=== PATIENT | female | born 1935 | race Caucasian/White ===

== ENCOUNTER 2019-05-31 12:30 | Emergency (ER) | payer OTHER ==
[~2019-05-31] VITALS: Ht 152.4 cm; Wt 59.4 kg
[2019-05-31 12:38] VITALS: Ht 152.4 cm; Wt 59.4 kg
[2019-05-31 15:10] VITALS: BP 136/89
== END 2019-05-31 15:10 | disposition home or self-care (01) ==
LOC: ED 12:30
DX: H81.10 Benign paroxysmal vertigo, unspecified ear (principal); I10 Essential (primary) hypertension; R11.2 Nausea with vomiting, unspecified; Z90.710 Acquired absence of both cervix and uterus
CPT/HCPCS: J8597; Q0162